=== PATIENT | male | born 1985 | race Caucasian/White ===

== ENCOUNTER 2018-09-25 21:02 | Emergency (ER) | payer OTHER ==
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
--- NOTE | 2018-09-25 21:44 | CT ---
EXAM: NONCONTRAST BRAIN CT EXAMINATION. CLINICAL INDICATION: Head trauma. COMPARISON: Compared to brain CT examination of July 17, 2014. TECHNIQUE: Using low dose helical CT technique, thin section axial images were performed through the brain without the administration of intravenous or subarachnoid contrast material. FINDINGS: Motion artifact degrades fine evaluation of the lower brain and skull base. Left dorsal lateral scalp hematoma with 4.2 mm subcutaneous densities nonmetallic foreign body. No underlying skull fracture. Brain volume is normal. No diffuse brain swelling or brain herniation. No hydrocephalus. No subdural or epidural hematomas. No large subacute brain infarction. No parenchymal brain hemorrhage or evidence of intracranial mass lesion. The brainstem and cerebellum are normal. Cerebral white matter is grossly normal. Caudate heads, lentiform nuclei, thalami and internal capsules are normal. Bones of the skull and skull base are normal. The middle ears and mastoid air cells are clear. The partially visualized paranasal sinuses are clear given severe motion artifact. IMPRESSION: 1. Left occipital scalp hematoma with 4.2 mm nonmetallic subcutaneous foreign body. No underlying skull fracture. Otherwise, normal noncontrast brain CT examination given significant motion artifact. This exam was performed according to our departmental dose-optimization program, which includes automated exposure control, adjustment of the mA and/or kV according to patient size and/or use of iterative reconstruction technique. Electronically signed by: Jassi Perez MD 09/25/2018 9:41 PM [facility]
[2018-09-25] MEDS ORDERED: LIDOCAINE 1% W/ EPINEPHRINE 20 ML VIAL INJ ONE (21:57)
[2018-09-25] MEDS ORDERED: CHLORHEXIDINE GLUCONATE 4 % 15 ML UD TOP ONE (21:57)
[2018-09-25] MEDS ORDERED: LIDOCAINE 1% 10 ML VIAL INJ ONE (21:57)
[2018-09-25] MEDS ORDERED: NEOMYCIN-BACITRACIN-POLYMYXIN 0.9 GM UD TOP ONE (22:14)
[2018-09-25 22:33] VITALS: BP 128/89; TEMP 97.9; O2SAT 99
== END 2018-09-25 22:33 | disposition home or self-care (01) ==
LOC: ER 21:02
DX: S01.01XA Laceration without foreign body of scalp, initial encounter (principal); F10.920 Alcohol use, unspecified with intoxication, uncomplicated; W22.8XXA Striking against or struck by other objects, initial encounter; Z87.891 Personal history of nicotine dependence; Y92.9 Unspecified place or not applicable